=== PATIENT | female | born 1975 | race Caucasian/White ===

== ENCOUNTER 2017-09-13 10:17 | Emergency (ER) | payer SELFPAY ==
[~2017-09-13] VITALS: Ht 157.5 cm; Wt 68.5 kg
[2017-09-13 10:34] VITALS: BP 143/93
--- NOTE | 2017-09-13 10:42 | NUR ---
PATIENT PRESENTS TO ED WITH R SHOULDER PAIN .PT DENIES N/V/D; SKIN IS PINK/WARM/DRY; AAOX4 WITH EVEN AND STEADY GAIT; LUNGS CLEAR BL; HR EVEN AND REGULAR; PT DENIES ANY FEVER, CP, SOB, OR COUGH AT THIS TIME; PATIENT STATES PAIN OF 6/10 IN R SHOULDER AT THIS TIME; VSS; PATIENT POSITIONED FOR COMFORT; HOB ELEVATED; BEDRAILS UP X2; BED DOWN. ER MD MADE AWARE OF PT STATUS.
--- NOTE | 2017-09-13 10:50 | NUR ---
PT TAKEN TO X RAY AND RETURNED AT THIS TIME NO S/S OF PAIN OR DISTRESS
[2017-09-13] MEDS ORDERED: DEXAMETHASONE 10 MG/ML VIAL IM ONE (11:15)
[2017-09-13] MEDS ORDERED: KETOROLAC 60 MG/2 ML VIAL IM ONE (11:15)
[2017-09-13 12:24] VITALS: BP 138/89
== END 2017-09-13 12:25 | disposition home or self-care (01) ==
LOC: MED 10:17
DX: M75.01 Adhesive capsulitis of right shoulder (principal); E11.9 Type 2 diabetes mellitus without complications
CPT/HCPCS: 73030; 82948; 96372; 99284; J1100; J1885

== ENCOUNTER 2018-05-06 02:00 | Emergency (ER) | payer OTHER ==
[~2018-05-06] VITALS: Ht 162.6 cm; Wt 71.7 kg
[2018-05-06 02:05] VITALS: BP 134/94
--- NOTE | 2018-05-06 04:19 | NUR ---
PT PRESENTS TO ED WITH SEVERE MUSTAFA WITHOUT VISUAL DISTURBANCE OR DIZZINESS X1 DAY. VSS. 9/10 PAIN. POSITIONED IN BED FOR COMFORT. SIDE RAILS UP. ER MD AWARE. CONTINUE TO MONITOR.
--- NOTE | 2018-05-06 04:19 | NUR ---
PT AMBULATED TO BED 1
--- NOTE | 2018-05-06 04:20 | NUR ---
DR CASTELLANOS AT BEDSIDE FOR EVALUATION.
[2018-05-06] MEDS ORDERED: KETOROLAC 60 MG/2 ML VIAL IM ONE (04:50)
[2018-05-06] MEDS ORDERED: NACL 0.9% 1,000 ML IV ONE (04:55)
[2018-05-06] MEDS ORDERED: INSULIN REGULAR, HUMAN 100 UNIT/ML VIAL IV ONE (04:55)
[2018-05-06 05:41] LABS: BASOPHILS % (AUTO) 0.3 % (0.0-2.0); EOSINOPHILS # (AUTO) 0.1 K/uL (0-0.4); EOSINOPHILS % (AUTO) 2.1 % (0.0-4.0); HEMATOCRIT 44.1 % (36-48); HEMOGLOBIN 14.6 g/dL (12.0-16.0); LYMPHOCYTES # (AUTO) 2.7 K/uL (2.5-16.5); LYMPHOCYTES % (AUTO) 38.5 % (20.5-51.1); MEAN CORPUSCULAR HEMOGLOBIN 31 pg (27-31); MEAN CORPUSCULAR HGB CONC 33 g/dL (33-37); MEAN CORPUSCULAR VOLUME 92.1 fL (80-94); MONOCYTES # (AUTO) 0.5 K/uL (0.8-1.0); MONOCYTES % (AUTO) 7.6 % (1.7-9.3); NEUTROPHILS # (AUTO) 3.6 K/uL (1.8-7.7); NEUTROPHILS % (AUTO) 51.5 % (42.2-75.2); PLATELET COUNT (AUTO) 316 K/uL (140-450); RED BLOOD CELL COUNT(AUTO) 4.79 MIL/uL (4.20-5.40); RED CELL DISTRIBUTION WIDTH 12.9 % (11.6-13.7); WHITE BLOOD COUNT (AUTO) 7.1 K/uL (4.8-10.8)
[2018-05-06 05:53] LABS: ALBUMIN 3.6 g/dL (3.4-5.0); ANION GAP 11.2 (8-16); CARBON DIOXIDE 27.2 mmol/L (21-32); CREATININE 0.5 mg/dL (0.6-1.3); POTASSIUM 3.4 mmol/L (3.5-5.1); TOTAL BILIRUBIN 0.6 mg/dL (0.0-1.0)
--- NOTE | 2018-05-06 07:04 | NUR ---
RECEIVED REPORT FROM BERTRAND GUEVARA.
[2018-05-06 07:59] VITALS: BP 111/43
--- NOTE | 2018-05-06 07:59 | NUR ---
Patient discharged with v/s stable. Written and verbal after care instructions given and explained. Patient alert, oriented and verbalized understanding of instructions. Ambulatory with steady gait. All questions addressed prior to discharge. ID band removed. Patient advised to follow up with PMD. Rx of METFORMIN given. Patient educated on indication of medication including possible reaction and side effects. Opportunity to ask questions provided and answered.
== END 2018-05-06 07:59 | disposition home or self-care (01) ==
LOC: MED 02:00
DX: R51 Headache (principal); R11.0 Nausea; E11.9 Type 2 diabetes mellitus without complications
CPT/HCPCS: 36415; 80053; 81002; 81025; 85025; 96361; 96372; 96374; 99283; J1815; J1885; J7030

== ENCOUNTER 2019-02-23 00:17 | Emergency (ER) | payer OTHER ==
[~2019-02-23] VITALS: Ht 154.9 cm; Wt 72.6 kg
[2019-02-23 00:20] VITALS: BP 150/85
--- NOTE | 2019-02-23 00:23 | NUR ---
TO LOBBY A/W BED AMBULATORY
--- NOTE | 2019-02-23 02:03 | NUR ---
PT AMBULATED TO BED 6
--- NOTE | 2019-02-23 02:20 | NUR ---
43/F PRESENTS TO ED WITH DAUGHTER, C/O CONSTIPATION, LBM 3-4 DAYS AGO, REPORTS DRY STOOL. PT ALSO REPORTS FEELING SOMETHING STUCK IN HER THROAT, 2 HRS AGO AFTER EATING STRAWBERRIES, NO FOREIGN BODY SEEN IN ORAL CAVITY. PT REPORTS TOLERABLE LOWER ABD PAIN. PT AWAKE AND ALERT, SKIN NORMAL WARM AND DRY, RR EVEN AND UNLABORED. HX DM; DENIES RX
[2019-02-23] MEDS ORDERED: GLUCAGON 1 MG VIAL IVP ONE (03:25)
--- NOTE | 2019-02-23 05:05 | NUR ---
Dr. Connolly evaluating patient at bedside.
--- NOTE | 2019-02-23 05:44 | NUR ---
Patient discharged with v/s stable. Written and verbal after care instructions given and explained. PT encouraged to drink plenty of fluids and increase fiber intake. Patient alert, oriented and verbalized understanding of instructions. Ambulatory with steady gait. All questions addressed prior to discharge. ID band removed. Patient advised to follow up with PMD. Rx of mAGNESIUM cITRATE LOW SODIUM SOLUTION WAS given. Patient educated on indication of medication including possible reaction and side effects. Opportunity to ask questions provided and answered.
[2019-02-23 05:45] VITALS: BP 120/67
== END 2019-02-23 05:44 | disposition home or self-care (01) ==
LOC: MED 00:17
DX: K59.00 Constipation, unspecified (principal); E11.9 Type 2 diabetes mellitus without complications; Z90.49 Acquired absence of other specified parts of digestive tract
CPT/HCPCS: 96374; 99283; J1610

== ENCOUNTER 2019-03-02 03:51 | Emergency (ER) | payer OTHER ==
[~2019-03-02] VITALS: Ht 165.1 cm; Wt 69.9 kg
[2019-03-02 04:03] VITALS: BP 143/64
--- NOTE | 2019-03-02 04:03 | NUR ---
PT TAKEN TO BED 11
--- NOTE | 2019-03-02 04:04 | NUR ---
43/ F PRESENTED TO ED WITH C/O CONSTIPATION [id number]. SEEN 1 WEEK AGO. PT STATES LLQ ABD PAIN RADIATING UP TO RUQ. STATES ABD FEELS HARD. LAS BM SUNDAY THE . 01/18 PAIN. ACTIVE BOWEL SOUNDS ALL 4 QUADRANTS. ABD SOFT NON DISTENDED. NO SIGNS OF DISTRESS. VSS. PAST MED HX DM. DOESN'T REMEMBER RX. DENIES ALLERGIES.
--- NOTE | 2019-03-02 04:08 | NUR ---
DR. LUEVANO EVALUATING PATIENT AT BEDSIDE.
--- NOTE | 2019-03-02 05:04 | NUR ---
PT TAKEN TO XRAY
--- NOTE | 2019-03-02 05:15 | NUR ---
PT BACK FROM XRAY
[2019-03-02 06:02] VITALS: BP 115/78
--- NOTE | 2019-03-02 06:02 | NUR ---
Patient discharged with v/s stable. Written and verbal after care instructions given and explained. Patient alert, oriented and verbalized understanding of instructions. Ambulatory with steady gait. All questions addressed prior to discharge. ID band removed. Patient advised to follow up with PMD. Rx of dicyclomine hydrochloride, mineral oil given. Patient educated on indication of medication including possible reaction and side effects. Opportunity to ask questions provided and answered.
== END 2019-03-02 06:02 | disposition home or self-care (01) ==
LOC: MED 03:51
DX: K56.7 Ileus, unspecified (principal); E11.9 Type 2 diabetes mellitus without complications; R03.0 Elevated blood-pressure reading, without diagnosis of hypertension
CPT/HCPCS: 74022; 81002; 81025; 82948; 99283; Q0092

== ENCOUNTER 2021-03-24 14:39 | Emergency (ER) | payer MEDICAID, OTHER ==
[~2021-03-24] VITALS: Ht 152.4 cm; Wt 70.3 kg
[2021-03-24 14:44] VITALS: BP 162/92
--- NOTE | 2021-03-24 14:45 | NUR ---
[facility] TO ER BED 12
[2021-03-24] MEDS ORDERED: LACTATED RINGERS 1,000 ML IV ONE ×2 (14:50→15:00)
--- NOTE | 2021-03-24 14:50 | NUR ---
45 Y/O FEMALE BIBA FROM [facility] C/O CHOKING ON FOOD & VOMITING. PT HAS BEEN HAVING EXCESS PHLEGM/SALIVA IN MOUTH X1 MONTH. PT REPORTS THAT SHE FELT LIKE SHE WAS CHOKING BUT NEVER ACTUALLY DID. PT HAD ONE EPISODE OF VOMITING AT [facility] AND IN THE AMBULANCE. PT DENIES NAUSEA AT THIS TIME. DENIES PAIN. PT REPORTS THAT SHE DOES NOT TAKE HER DM MEDICATION BECAUSE SHE DOES NOT LIKE THE WAY IT MAKES IT FEEL AND DOES NOT CHECK HER SUGAR BECAUSE IT HURTS. PT CONNECTED TO MONITOR, VSS. NO SIGNS OF DISTRESS. PT A/O X4 WITH EVEN AND UNLABORED RESPIRATIONS. PMH: JOSE ONEILL
[2021-03-24 15:43] LABS: BASOPHILS # (AUTO) 0.1 K/uL (0.00-0.22); BASOPHILS % (AUTO) 1.4 % (0.0-2.0); EOSINOPHILS # (AUTO) 0.1 K/uL (0-0.4); EOSINOPHILS % (AUTO) 1.1 % (0.0-4.0); HEMATOCRIT 38.9 % (36-48); HEMOGLOBIN 13.2 g/dL (12.0-16.0); LYMPHOCYTES # (AUTO) 1.6 K/uL (2.5-16.5); LYMPHOCYTES % (AUTO) 24.6 % (20.5-51.1); MEAN CORPUSCULAR HEMOGLOBIN 31 pg (27-31); MEAN CORPUSCULAR HGB CONC 34 g/dL (33-37); MEAN CORPUSCULAR VOLUME 91.4 fL (80-94); MONOCYTES # (AUTO) 0.5 K/uL (0.8-1.0); MONOCYTES % (AUTO) 7.9 % (1.7-9.3); NEUTROPHILS # (AUTO) 4.3 K/uL (1.8-7.7); PLATELET COUNT (AUTO) 283 K/uL (140-450); RED BLOOD CELL COUNT(AUTO) 4.26 MIL/uL (4.20-5.40); RED CELL DISTRIBUTION WIDTH 12.8 % (11.6-13.7); WHITE BLOOD COUNT (AUTO) 6.6 K/uL (4.8-10.8)
[2021-03-24 15:53] LABS: ALBUMIN 3.2 g/dL (3.4-5.0); ANION GAP 14.7 (8-16); CARBON DIOXIDE 26.3 mmol/L (21-32); CREATININE 0.6 mg/dL (0.6-1.3); TOTAL BILIRUBIN 0.5 mg/dL (0.0-1.0)
--- NOTE | 2021-03-24 16:19 | NUR ---
PT AMBULATED TO RESTROOM WITH STEADY GAIT FOR URINE SAMPLE
[2021-03-24] MEDS ORDERED: INSULIN REGULAR, HUMAN 100 UNIT/ML VIAL SUBQ ONE (17:25)
[2021-03-24 18:24] LABS: APPEARANCE,URINE CLEAR (CLEAR); BILIRUBIN,URINE NEGATIVE (NEGATIVE); BLOOD, URINE NEGATIVE (NEGATIVE); COLOR,URINE YELLOW (YELLOW); LEUKOCYTE ESTERASE ,URINE NEGATIVE (NEGATIVE); NITRITE, URINE NEGATIVE (NEGATIVE); UGLUCOSE 3+ (NEGATIVE)
--- NOTE | 2021-03-24 18:50 | NUR ---
PO CHALLENGE COMPLETED. DENIES NAUSEA. ABLE TO KEEP WATER DOWN. DR PULIDO MADE AWARE
--- NOTE | 2021-03-24 19:24 | NUR ---
REPORT GIVEN TO YODIT GUEVARA, TRANSFER OF CARE AT THIS TIME
[2021-03-24] MEDS ORDERED: METF-988 PO (19:33)
--- NOTE | 2021-03-24 19:42 | NUR ---
PATIENT COAX4 AMBULATORY AND CLEARED FOR DISCHARGE. NO FURTHER QUESTIONS FOLLOWING DISCHARGE TEACHING AND PATIENT ADVISED TO FOLLOW UP WITH PCP AND RETURN IF CONDITION WORSENS
[2021-03-24 19:45] VITALS: BP 137/69
== END 2021-03-24 19:42 | disposition home or self-care (01) ==
LOC: MED 14:39
DX: E11.65 Type 2 diabetes mellitus with hyperglycemia (principal); Z91.14 Patient's other noncompliance with medication regimen; Z79.84 Long term (current) use of oral hypoglycemic drugs
CPT/HCPCS: 36415; 80053; 81003; 81025; 83690; 85025; 96360; 96372; 99283; J1815; J7120

== ENCOUNTER 2021-03-29 15:28 | Emergency (ER) | payer MEDICAID ==
[~2021-03-29] VITALS: Ht 152.4 cm; Wt 71.2 kg
[~2021-03-29 15:28] MED LIST: METF-988 PO
[2021-03-29 15:40] VITALS: BP 147/82
--- NOTE | 2021-03-29 15:46 | NUR ---
AMBULANCE 2.
--- NOTE | 2021-03-29 19:02 | NUR ---
Patient ambulated to bed 9.
--- NOTE | 2021-03-29 19:30 | NUR ---
RECEIVED IN BED 9 WITH C/O GENERAL WEAKNESS. PT IS LATVIAN SPEAKING AND STATES HER BLOOD SUGAR WAS LOW FOR HER, 160. ALSO HAS VAGUE THROAT COMPLAINT. PMH : JOSE ONEILL
[2021-03-29 19:49] LABS: BASOPHILS % (AUTO) 0.2 % (0.0-2.0); EOSINOPHILS % (AUTO) 0.3 % (0.0-4.0); HEMATOCRIT 42.1 % (36-48); HEMOGLOBIN 14.3 g/dL (12.0-16.0); LYMPHOCYTES # (AUTO) 2.2 K/uL (2.5-16.5); LYMPHOCYTES % (AUTO) 29.5 % (20.5-51.1); MEAN CORPUSCULAR HEMOGLOBIN 31 pg (27-31); MEAN CORPUSCULAR HGB CONC 34 g/dL (33-37); MEAN CORPUSCULAR VOLUME 92.4 fL (80-94); MONOCYTES # (AUTO) 0.4 K/uL (0.8-1.0); MONOCYTES % (AUTO) 5.2 % (1.7-9.3); NEUTROPHILS # (AUTO) 4.8 K/uL (1.8-7.7); NEUTROPHILS % (AUTO) 64.8 % (42.2-75.2); PLATELET COUNT (AUTO) 349 K/uL (140-450); RED BLOOD CELL COUNT(AUTO) 4.55 MIL/uL (4.20-5.40); RED CELL DISTRIBUTION WIDTH 12.8 % (11.6-13.7); WHITE BLOOD COUNT (AUTO) 7.4 K/uL (4.8-10.8)
[2021-03-29 19:52] LABS: ANION GAP 17.8 (8-16); CARBON DIOXIDE 24.3 mmol/L (21-32); CREATININE 0.5 mg/dL (0.6-1.3); POTASSIUM 4.1 mmol/L (3.5-5.1)
[2021-03-29] MEDS ORDERED: LACTATED RINGERS 1,000 ML IV ONE (20:35)
--- NOTE | 2021-03-29 22:14 | NUR ---
FAMILY VISITING AT BEDSIDE
--- NOTE | 2021-03-30 00:30 | NUR ---
CONSENT SIGNED FOR CT
--- NOTE | 2021-03-30 02:00 | NUR ---
RESTING IN BED WITH EYES CLOSED, RESPIRATIONS REGULAR AND UNLABORED
--- NOTE | 2021-03-30 03:46 | NUR ---
AMBULATED TO BR WITH STEADY GAIT
[2021-03-30 04:32] VITALS: BP 138/74
--- NOTE | 2021-03-30 04:32 | NUR ---
Patient discharged with v/s stable. Written and verbal after care instructions given and explained. Patient verbalized understanding. Ambulatory with steady gait. All questions addressed prior to discharge. Advised to follow up with PMD.
== END 2021-03-30 04:32 | disposition home or self-care (01) ==
LOC: MED 15:28
DX: R53.1 Weakness (principal); R13.10 Dysphagia, unspecified; E11.65 Type 2 diabetes mellitus with hyperglycemia
CPT/HCPCS: 36415; 70491; 80048; 81002; 81025; 85025; 96360; 99285; J7120

== ENCOUNTER 2022-07-29 18:28 | Emergency (ER) | payer MEDICAID ==
[~2022-07-29] VITALS: Ht 155.4 cm; Wt 65.5 kg
[~2022-07-29 18:28] MED LIST changes: +METF-1243 PO; -METF-988 PO
[2022-07-29 19:02] VITALS: BP 102/59
[2022-07-29 19:56] LABS: BASOPHILS % (AUTO) 0.6 % (0.0-2.0); EOSINOPHILS # (AUTO) 0.1 K/uL (0-0.4); EOSINOPHILS % (AUTO) 2.3 % (0.0-4.0); HEMATOCRIT 42.9 % (36-48); HEMOGLOBIN 14.6 g/dL (12.0-16.0); LYMPHOCYTES # (AUTO) 1.8 K/uL (2.5-16.5); LYMPHOCYTES % (AUTO) 36.3 % (20.5-51.1); MEAN CORPUSCULAR HEMOGLOBIN 31 pg (27-31); MEAN CORPUSCULAR HGB CONC 34 g/dL (33-37); MEAN CORPUSCULAR VOLUME 90.4 fL (80-94); MONOCYTES # (AUTO) 0.7 K/uL (0.8-1.0); MONOCYTES % (AUTO) 13.2 % (1.7-9.3); NEUTROPHILS # (AUTO) 2.3 K/uL (1.8-7.7); NEUTROPHILS % (AUTO) 47.6 % (42.2-75.2); PLATELET COUNT (AUTO) 348 K/uL (140-450); RED BLOOD CELL COUNT(AUTO) 4.75 MIL/uL (4.20-5.40); WHITE BLOOD COUNT (AUTO) 4.9 K/uL (4.8-10.8)
[2022-07-29 20:13] LABS: ALBUMIN 3.8 g/dL (3.4-5.0); ANION GAP 11.4 (8-16); CARBON DIOXIDE 27.7 mmol/L (21-32); CREATININE 0.6 mg/dL (0.6-1.3); POTASSIUM 4.1 mmol/L (3.5-5.1); TOTAL BILIRUBIN 0.5 mg/dL (0.0-1.0)
[2022-07-29 20:18] LABS: APPEARANCE,URINE CLEAR (CLEAR); BILIRUBIN,URINE NEGATIVE (NEGATIVE); BLOOD, URINE 3+ (NEGATIVE); COLOR,URINE YELLOW (YELLOW); LEUKOCYTE ESTERASE ,URINE NEGATIVE (NEGATIVE); NITRITE, URINE NEGATIVE (NEGATIVE); UGLUCOSE 3+ (NEGATIVE)
[2022-07-29 20:38] LABS: RBC,URINE 20-50 /HPF (0-5); TRICHOMONAS,URINE None Seen /HPF (None Seen); YEAST,URINE None Seen /HPF (None Seen)
--- NOTE | 2022-07-29 22:12 | NUR ---
Dr. Begum examining patient.
--- NOTE | 2022-07-29 22:19 | NUR ---
PT TO 10
[2022-07-29] MEDS ORDERED: cefTRIAXone 1,000 MG in LIDOCAINE MPF 1% 2.1 ML IM ONE (22:20)
[2022-07-29] MEDS ORDERED: cefTRIAXone 1,000 MG VIAL ONE (22:27)
[2022-07-29] MEDS ORDERED: LIDOCAINE MPF 1% 5 ML ONE (22:27)
[2022-07-29] MEDS ORDERED: GABA300C PO (23:42)
[2022-07-29] MEDS ORDERED: NITR100C7 PO (23:42)
[2022-07-29] MEDS ORDERED: VALA500T1 PO (23:44)
[2022-07-29 23:45] VITALS: BP 102/59
--- NOTE | 2022-07-29 23:45 | NUR ---
Patient discharged with v/s stable. Written and verbal after care instructions given and explained. Patient alert, oriented and verbalized understanding of instructions. Ambulatory with steady gait. All questions addressed prior to discharge. ID band removed. Patient advised to follow up with PMD. Rx of NEURONTIN given. Patient educated on indication of medication including possible reaction and side effects. Opportunity to ask questions provided and answered.
== END 2022-07-29 23:45 | disposition home or self-care (01) ==
LOC: MED 18:28
DX: N39.0 Urinary tract infection, site not specified (principal); B02.9 Zoster without complications; E11.9 Type 2 diabetes mellitus without complications; Z79.899 Other long term (current) drug therapy; Z79.2 Long term (current) use of antibiotics
CPT/HCPCS: 36415; 74176; 80053; 81001; 81025; 82150; 82948; 83690; 85025; 87086; 96372; 99285; J0696; J2001

== ENCOUNTER 2022-10-22 02:10 | Emergency (ER) | payer MEDICAID ==
[~2022-10-22] VITALS: Ht 165.1 cm; Wt 66.7 kg
[~2022-10-22 02:10] MED LIST changes: +GABA300C PO; +NITR100C7 PO; +VALA500T1 PO
[2022-10-22 02:14] VITALS: BP 141/79
[2022-10-22] MEDS ORDERED: KETOROLAC 60 MG/2 ML VIAL IM ONE (02:35)
[2022-10-22 03:35] VITALS: BP 117/77
--- NOTE | 2022-10-22 03:35 | NUR ---
Patient discharged. Written and verbal after care instructions given and explained. Patient verbalized understanding. Ambulatory with steady gait. ID band removed. All questions addressed prior to discharge. Advised to follow up with PMD.
== END 2022-10-22 03:35 | disposition home or self-care (01) ==
LOC: MED 02:10
DX: G44.209 Tension-type headache, unspecified, not intractable (principal); I10 Essential (primary) hypertension; E11.9 Type 2 diabetes mellitus without complications; Z79.4 Long term (current) use of insulin; Z79.899 Other long term (current) drug therapy
CPT/HCPCS: 96372; 99283; J1885